=== PATIENT | female | born 1995 | race Caucasian/White ===

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

== ENCOUNTER 2017-04-09 16:01 | Emergency (ER) | payer BC ==
[~2017-04-09] VITALS: Ht 162.6 cm; Wt 57.1 kg
== END 2017-04-09 17:34 | disposition home or self-care (01) ==
LOC: SED 16:01
DX: R21 Rash and other nonspecific skin eruption (principal); Z88.2 Allergy status to sulfonamides
CPT/HCPCS: 99282